=== PATIENT | male | born 1990 | race Caucasian/White ===

== ENCOUNTER 2017-10-08 10:53 | Emergency (ER) | payer MEDICAID, OTHER ==
[~2017-10-08] VITALS: Ht 185.4 cm; Wt 71.7 kg
[~2017-10-08 10:53] MED LIST: BENZ-16 PO; CLIN-79 PO; FLUT16SP2 NS; GUAI473S11 PO
[2017-10-08] MEDS ORDERED: GUAI120015 PO (11:28)
[2017-10-08] MEDS ORDERED: AFRIN NS (11:28)
[2017-10-08] MEDS ORDERED: IBUP-1986 PO (11:28)
[2017-10-08 11:39] VITALS: BP 134/90
== END 2017-10-08 11:37 | disposition home or self-care (01) ==
LOC: ER 10:53
DX: J06.9 Acute upper respiratory infection, unspecified (principal); J32.9 Chronic sinusitis, unspecified; F12.10 Cannabis abuse, uncomplicated; Z88.0 Allergy status to penicillin; Z79.899 Other long term (current) drug therapy; Z72.0 Tobacco use
CPT/HCPCS: 99283

== ENCOUNTER 2018-07-13 15:49 | Emergency (ER) | payer OTHER ==
[~2018-07-13] VITALS: Ht 185.4 cm; Wt 72.7 kg
[~2018-07-13 15:49] MED LIST changes: -CLIN-79 PO; +CLIN150C8 PO; +GUAI120015 PO; +IBUP-1986 PO
[2018-07-13] MEDS: acetaminophen 325mg tablet PO ONE (16:23)
[2018-07-13] MEDS: dexamethasone sod phosphate 10mg/ml inj PO STA (16:23)
[2018-07-13 17:16] VITALS: BP 123/74
== END 2018-07-13 17:18 | disposition home or self-care (01) ==
LOC: ER 15:49
DX: J02.9 Acute pharyngitis, unspecified (principal); J39.2 Other diseases of pharynx; J35.1 Hypertrophy of tonsils; F12.90 Cannabis use, unspecified, uncomplicated; Z88.0 Allergy status to penicillin; Z91.018 Allergy to other foods; Z79.899 Other long term (current) drug therapy
CPT/HCPCS: 87081; 87880; 99283; J1100

== ENCOUNTER 2018-07-18 07:29 | Emergency (ER) | payer SELFPAY ==
[~2018-07-18] VITALS: Ht 185.4 cm; Wt 71.1 kg
[2018-07-18 07:37] VITALS: BP 132/77
== END 2018-07-18 09:19 | disposition home or self-care (01) ==
LOC: ER 07:31
DX: J02.9 Acute pharyngitis, unspecified (principal); F17.200 Nicotine dependence, unspecified, uncomplicated; F12.90 Cannabis use, unspecified, uncomplicated; Z88.0 Allergy status to penicillin; Z79.2 Long term (current) use of antibiotics; Z79.899 Other long term (current) drug therapy
CPT/HCPCS: 87081; 87880; 99283

== ENCOUNTER 2018-09-02 09:57 | Emergency (ER) | payer OTHER ==
[~2018-09-02] VITALS: Ht 185.4 cm; Wt 72.7 kg
[2018-09-02] MEDS ORDERED: CYCL-1 PO (11:34)
[2018-09-02] MEDS ORDERED: ketorolac trometh inj. 60 MG/2 ML VIAL IM ONE (11:35)
[2018-09-02 12:13] VITALS: BP 127/73
== END 2018-09-02 12:16 | disposition home or self-care (01) ==
LOC: ER 09:57
DX: S16.1XXA Strain of muscle, fascia and tendon at neck level, initial encounter (principal); F12.90 Cannabis use, unspecified, uncomplicated; Z88.0 Allergy status to penicillin; X58.XXXA Exposure to other specified factors, initial encounter; Y93.89 Activity, other specified; Y92.89 Other specified places as the place of occurrence of the external cause; Y99.8 Other external cause status
CPT/HCPCS: 96372; 99283; J1885

== ENCOUNTER 2018-10-13 15:15 | Emergency (ER) | payer OTHER ==
[~2018-10-13] VITALS: Ht 185.4 cm; Wt 76.0 kg
[~2018-10-13 15:15] MED LIST changes: +CYCL-1 PO
[2018-10-13 15:20] VITALS: BP 127/72
[2018-10-13] MEDS ORDERED: ACET-2615 PO (15:44)
[2018-10-13] MEDS ORDERED: MELO-100 PO (15:44)
[2018-10-13] MEDS ORDERED: CYCL-1 PO (15:44)
[2018-10-13] MEDS ORDERED: acetaminophen 325mg tablet PO ONE (15:45)
[2018-10-13] MEDS ORDERED: ondansetron 4mg rapidly disintigrating tab PO ONE (15:45)
[2018-10-13] MEDS ORDERED: ketorolac trometh inj. 60 MG/2 ML VIAL IM ONE (15:45)
[2018-10-13] MEDS ORDERED: HYDROcodone/acetaminophen 5mg/325mg tablet PO ONE (15:45)
== END 2018-10-13 16:27 | disposition home or self-care (01) ==
LOC: ER 15:15
DX: S30.810A Abrasion of lower back and pelvis, initial encounter (principal); F12.90 Cannabis use, unspecified, uncomplicated; Z88.0 Allergy status to penicillin; Z79.899 Other long term (current) drug therapy; W18.49XA Other slipping, tripping and stumbling without falling, initial encounter; Y93.89 Activity, other specified; Y92.89 Other specified places as the place of occurrence of the external cause; Y99.9 Unspecified external cause status
CPT/HCPCS: 96372; 99284; J1885

== ENCOUNTER 2018-10-23 10:51 | Emergency (ER) | payer OTHER ==
[~2018-10-23] VITALS: Ht 182.9 cm; Wt 73.0 kg
[~2018-10-23 10:51] MED LIST changes: +ACET-2615 PO; +MELO-100 PO
[2018-10-23 11:17] VITALS: BP 122/73
[2018-10-23] MEDS ORDERED: CLIN-96 PO (12:30)
== END 2018-10-23 12:41 | disposition home or self-care (01) ==
LOC: ER 10:52
DX: K04.7 Periapical abscess without sinus (principal); K02.9 Dental caries, unspecified; F41.9 Anxiety disorder, unspecified; F17.200 Nicotine dependence, unspecified, uncomplicated; F12.10 Cannabis abuse, uncomplicated; Z88.0 Allergy status to penicillin; Z79.899 Other long term (current) drug therapy
CPT/HCPCS: 99283

== ENCOUNTER 2018-10-24 09:38 | Emergency (ER) | payer OTHER ==
[~2018-10-24] VITALS: Ht 185.4 cm; Wt 118.2 kg
[~2018-10-24 09:38] MED LIST changes: +CLIN-96 PO
[2018-10-24] MEDS ORDERED: LIDOcaine 1% w/epiNEPHrine 1:200,000 30ml vial IM ONE (10:20)
[2018-10-24 11:25] VITALS: BP 142/92
== END 2018-10-24 11:28 | disposition home or self-care (01) ==
LOC: ER 09:39
DX: K04.7 Periapical abscess without sinus (principal); F17.200 Nicotine dependence, unspecified, uncomplicated; F12.90 Cannabis use, unspecified, uncomplicated; Z88.0 Allergy status to penicillin
CPT/HCPCS: 41800; 99284

== ENCOUNTER 2020-12-01 14:17 | Emergency (ER) | payer MEDICAID ==
[~2020-12-01] VITALS: Ht 185.4 cm; Wt 75.0 kg
[~2020-12-01 14:17] MED LIST changes: -ACET-2615 PO; -CLIN-96 PO; +CLIN-97 PO
[2020-12-01 14:26] VITALS: BP 121/70
[2020-12-01] MEDS ORDERED: diphenhydrAMINE 2%/zinc acetate cream TP STA (14:58)
[2020-12-01] MEDS ORDERED: triamcinolone acetonide 40mg/ml inj IM ONE (15:00)
[2020-12-01] MEDS ORDERED: hydrocortisone 1% OINTMENT 30gm tube TP ONE (15:00)
[2020-12-01] MEDS ORDERED: PRED10TA PO (15:14)
[2020-12-01] MEDS ORDERED: HYDR28CR14 TOP (15:14)
== END 2020-12-01 15:38 | disposition home or self-care (01) ==
LOC: ER 14:18
DX: L23.7 Allergic contact dermatitis due to plants, except food (principal); F41.9 Anxiety disorder, unspecified; F12.90 Cannabis use, unspecified, uncomplicated; Z72.89 Other problems related to lifestyle; Z88.0 Allergy status to penicillin; Z79.2 Long term (current) use of antibiotics; Z79.899 Other long term (current) drug therapy
CPT/HCPCS: 99283; J3301

== ENCOUNTER 2021-01-13 08:33 | Emergency (ER) | payer MEDICAID ==
[~2021-01-13] VITALS: Ht 185.4 cm; Wt 68.2 kg
[2021-01-13 08:33] VITALS: BP 124/75
[~2021-01-13 08:33] MED LIST changes: +HYDR28CR14 TOP; +PRED10TA PO
[2021-01-13] MEDS ORDERED: DICL100G15 TOP (09:24)
[2021-01-13] MEDS ORDERED: NAPR-56 PO (09:24)
[2021-01-13] MEDS ORDERED: ketorolac trometh inj. 60 MG/2 ML VIAL IM ONE (09:25)
== END 2021-01-13 09:40 | disposition home or self-care (01) ==
LOC: ER 08:33
DX: M75.51 Bursitis of right shoulder (principal); M25.511 Pain in right shoulder; R53.1 Weakness; F41.9 Anxiety disorder, unspecified; F12.90 Cannabis use, unspecified, uncomplicated; Z72.89 Other problems related to lifestyle; Z88.0 Allergy status to penicillin; Z79.2 Long term (current) use of antibiotics; Z79.899 Other long term (current) drug therapy
CPT/HCPCS: 73030; 96372; 99283; J1885

== ENCOUNTER 2021-03-12 17:44 | Emergency (ER) | payer MEDICAID ==
[~2021-03-12] VITALS: Ht 185.4 cm; Wt 72.0 kg
[~2021-03-12 17:44] MED LIST changes: +DICL100G15 TOP
[2021-03-12 18:08] VITALS: BP 114/69
[2021-03-12] MEDS ORDERED: HYDROcodone/acetaminophen 5mg/325mg tablet PO ONE (20:30)
[2021-03-12] MEDS ORDERED: ondansetron 4mg rapidly disintigrating tab PO ONE (20:30)
[2021-03-12] MEDS ORDERED: ketorolac tromethamine 15mg/ml inj. IM ONE (20:30)
[2021-03-12] MEDS ORDERED: IBUP-1984 PO (20:38)
== END 2021-03-12 21:07 | disposition home or self-care (01) ==
LOC: ER 17:44
DX: M25.531 Pain in right wrist (principal); F41.9 Anxiety disorder, unspecified; F12.90 Cannabis use, unspecified, uncomplicated; Z72.89 Other problems related to lifestyle; Z88.0 Allergy status to penicillin; Z79.2 Long term (current) use of antibiotics; Z79.899 Other long term (current) drug therapy
CPT/HCPCS: 29125; 73100; 96372; 99283; J1885

== ENCOUNTER 2021-11-07 15:13 | Emergency (ER) | payer MEDICAID ==
[~2021-11-07] VITALS: Ht 185.4 cm; Wt 75.0 kg
[2021-11-07 16:09] VITALS: BP 128/93
== END 2021-11-07 17:59 | disposition home or self-care (01) ==
LOC: ER 15:14
DX: S63.617A Unspecified sprain of left little finger, initial encounter (principal); X50.9XXA Other and unspecified overexertion or strenuous movements or postures, initial encounter; Y93.89 Activity, other specified; Y92.89 Other specified places as the place of occurrence of the external cause; Y99.8 Other external cause status
CPT/HCPCS: 73140; 99283

== ENCOUNTER 2021-12-07 10:10 | Inpatient (IN) | payer MEDICAID ==
[~2021-12-07] VITALS: Ht 185.4 cm; Wt 67.2 kg
[2021-12-07 10:51] LABS: BASOPHILS % (AUTO) 0.2 % (0-1); EOSINOPHILS % (AUTO) 0.1 % (0-6); HEMATOCRIT 44.8 % (42.0-52.0); HEMOGLOBIN 14.9 g/dl (14.0-17.9); LYMPHOCYTES # (AUTO) 1.4 X10'3 (1.1-4.8); LYMPHOCYTES % (AUTO) 8.6 % (21-51); MEAN CORPUSCULAR HEMOGLOBIN 31.5 PG (27.0-31.0); MEAN CORPUSCULAR HGB CONC 33.2 g/dL (33.0-36.5); MEAN CORPUSCULAR VOLUME 94.8 FL (78-98); MEAN PLATELET VOLUME 6.4 FL (7.4-10.4); MONOCYTES # (AUTO) 0.8 X10'3 (0-0.9); MONOCYTES % (AUTO) 4.7 % (2-12); NEUTROPHILS # (AUTO) 14.5 X10'3 (1.8-7.7); NEUTROPHILS % (AUTO) 86.4 % (42-75); PLATELET COUNT 336 X10'3 (140-440); RED BLOOD COUNT 4.73 X10'6 (4.70-6.10); WHITE BLOOD COUNT 16.8 X10'3 (4.5-11.0)
[2021-12-07 11:28] LABS: ANION GAP 15 (8-16); BLOOD UREA NITROGEN 29 MG/DL (7-18); BUN/CREATININE RATIO 9.3 (5.4-32.0); CHLORIDE 98 MMOL/L (99-107); CREATININE 3.13 MG/DL (0.60-1.10); GLUCOSE 137 MG/DL (70-104); SODIUM 136 MMOL/L (135-145); eGFR 24 ML/MIN
[2021-12-07 11:29] LABS: ALBUMIN/GLOBULIN RATIO 1.1 (1.1-1.5); BILIRUBIN,TOTAL 0.4 MG/DL (0.1-1.0); CALCIUM 7.7 MG/DL (8.5-10.1); TOTAL PROTEIN 7.7 G/DL (6.4-8.2)
[2021-12-07 11:30] LABS: ALANINE AMINOTRANSFERASE 3401 U/L (12-78); ALKALINE PHOSPHATASE 84 IU/L (46-116); ASPARTATE AMINO TRANSFERASE 3860 U/L (10-37)
[2021-12-07 11:35] LABS: POTASSIUM 6.8 MMOL/L (3.5-5.1)
[2021-12-07] MEDS ORDERED: normal saline 1000ML IV soln IVB ONE (11:55)
--- NOTE | 2021-12-07 12:10 | NUR ---
Pt to CT
[2021-12-07] MEDS ORDERED: ondansetron/PF 4mg/2ml inj IV ONE (13:10)
[2021-12-07 13:15] LABS: ACETAMINOPHEN < 2.0 UG/ML (10-30)
[2021-12-07] MEDS ORDERED: albuterol 2.5 MG/3 ML nebule CONTNEB PRN (13:45)
[2021-12-07] MEDS ORDERED: cefTRIAXone 1g/NS 100ml IVPB 100 ML IV ONE (13:45)
[2021-12-07] MEDS ORDERED: insulin NPH/REG insulin (NovoLIN 70/30) 10ml vial SQ SCH (13:45)
[2021-12-07] MEDS ORDERED: sodium polystyrene sulfonate 15gm/60ml oral suspension PO ONE (13:45)
[2021-12-07] MEDS ORDERED: insulin regular, human 10 units/0.1 ml syringe IV ONE ×2 (13:50→20:10)
[2021-12-07] MEDS ORDERED: dextrose 50%-water 50ml dispensing syringe IV ONE ×2 (13:50→20:10)
[2021-12-07 13:54] LABS: URINE AMPHETAMINE SCREEN NEGATIVE (Neg); URINE BARBITUATE SCREEN NEGATIVE (Neg); URINE BENZODIAZEPINES SCREEN NEGATIVE (Neg); URINE CANNABINOID SCREEN POSITIVE (Neg); URINE COCAINE SCREEN POSITIVE (Neg); URINE METHADONE SCREEN NEGATIVE (Neg); URINE OPIATE SCREEN NEGATIVE (Neg); URINE PHENCYCLIDINE SCREEN NEGATIVE (Neg)
--- NOTE | 2021-12-07 15:15 | NUR ---
Pt to CT, then to MRI for scan after.
[2021-12-07 16:02] LABS: OSMOLALITY 297 MOSM/K (280-300)
[2021-12-07] MEDS ORDERED: WATER IV ONE ×3 (16:45→21:45)
[2021-12-07] MEDS ORDERED: DEXTROSE 5% IV ONE ×3 (16:45→21:45)
[2021-12-07] MEDS ORDERED: ACETYLCYSTEINE IV ONE ×3 (16:45→21:45)
[2021-12-07 17:01] LABS: CREATINE KINASE 5381 U/L (39-308)
[2021-12-07 17:11] LABS: POTASSIUM 5.8 MMOL/L (3.5-5.1)
[2021-12-07] MEDS ORDERED: normal saline 1000ml 1,000 ML IV SCH (17:25)
[2021-12-07] MEDS ORDERED: morphine 2 MG/ML inj. syringe IV PRN (18:35)
[2021-12-07] MEDS ORDERED: ipratropium/albuterol 3ml nebule NEB PRN (18:35)
[2021-12-07] MEDS ORDERED: magnesium hydroxide 30ml (MOM) UD suspension PO PRN (18:35)
[2021-12-07] MEDS: normal saline 1000ml 1,000 ML IV SCH ×2 (18:50→23:35)
[2021-12-07] MEDS: aspirin 81mg, enteric-coated 1 TAB TABLET.DR PO SCH (18:55)
[2021-12-07 19:00] VITALS: BP 137/98
[2021-12-07] MEDS: ondansetron/PF 4mg/2ml inj IV PRN (19:02)
[2021-12-07] MEDS ORDERED: NO HOME MEDS (19:04)
[2021-12-07] MEDS: pantoprazole 40mg Tablet.DR PO SCH (19:55)
[2021-12-07] MEDS: doxycycline inj 100 MG in normal saline 100ml IV soln 100 ML IV SCH (19:55)
[2021-12-07 19:59] LABS: ALBUMIN 3.3 G/DL (3.4-5.0); ANION GAP 11 (8-16); BLOOD UREA NITROGEN 36 MG/DL (7-18); BUN/CREATININE RATIO 13.6 (5.4-32.0); CALCIUM 6.6 MG/DL (8.5-10.1); CHLORIDE 101 MMOL/L (99-107); CREATININE 2.65 MG/DL (0.60-1.10); GLUCOSE 160 MG/DL (70-104); SODIUM 136 MMOL/L (135-145); TOTAL CARBON DIOXIDE 24.2 MMOL/L (24-32); eGFR 28 ML/MIN
[2021-12-07 19:59] LABS: ABG BASE EXCESS -4.9 mmol/L (-2.0-2.0); ABG HCO3 22.7 mmol/L (22.0-26.0); ABG PCO2 (T) 49.9 mmHg (35.0-48.0); ABG PO2 (T) 88.5 mmHg (75.0-100.0); ALLEN'S TEST POSITIVE; FCOHb 0.4 % (0.0-3.9); FLOW 2 L/min; FMetHb 0.2 % (0.0-1.5); FO2Hb 95.4 % (94-97); PATIENT TEMPERATURE 36.1; TOTAL HEMOGLOBIN 14.3 G/dl (14.0-18.0)
[2021-12-07 20:00] VITALS: BP 136/74
[2021-12-07 20:00] LABS: POTASSIUM 6.2 MMOL/L (3.5-5.1)
[2021-12-07] MEDS ORDERED: SODIUM ZIRCONIUM CYCLOSILICATE 10 GM POWD.PACK PO ONE (20:25)
[2021-12-07 21:00] VITALS: BP 150/92
[2021-12-07 22:00] VITALS: BP 124/86
[2021-12-07 23:00] VITALS: BP 131/82
[2021-12-08] VITALS (24 sets, daily range): BP systolic 122–156; BP diastolic 80–104
[2021-12-08 00:42] LABS: ANION GAP 12 (8-16); BLOOD UREA NITROGEN 39 MG/DL (7-18); BUN/CREATININE RATIO 14.7 (5.4-32.0); CALCIUM 6.7 MG/DL (8.5-10.1); CHLORIDE 101 MMOL/L (99-107); CREATININE 2.66 MG/DL (0.60-1.10); GLUCOSE 94 MG/DL (70-104); POTASSIUM 5.5 MMOL/L (3.5-5.1); SODIUM 135 MMOL/L (135-145); TOTAL CARBON DIOXIDE 22.1 MMOL/L (24-32); eGFR 28 ML/MIN
[2021-12-08] MEDS: normal saline 1000ml 1,000 ML IV SCH ×2 (01:19→07:02)
[2021-12-08] MEDS: ondansetron/PF 4mg/2ml inj IV PRN ×3 (02:52→16:58)
[2021-12-08 03:44] LABS: ALBUMIN 2.9 G/DL (3.4-5.0); ALBUMIN/GLOBULIN RATIO 1.1 (1.1-1.5); ALKALINE PHOSPHATASE 54 IU/L (46-116); ANION GAP 10 (8-16); BILIRUBIN,TOTAL 0.2 MG/DL (0.1-1.0); BLOOD UREA NITROGEN 41 MG/DL (7-18); CALCIUM 6.6 MG/DL (8.5-10.1); CHLORIDE 101 MMOL/L (99-107); CREATININE 2.93 MG/DL (0.60-1.10); GLUCOSE 104 MG/DL (70-104); MAGNESIUM 1.5 MG/DL (1.5-2.4); PHOSPHORUS 2.9 MG/DL (2.3-4.5); SODIUM 135 MMOL/L (135-145); TOTAL CARBON DIOXIDE 23.6 MMOL/L (24-32); TOTAL PROTEIN 5.6 G/DL (6.4-8.2); eGFR 25 ML/MIN
[2021-12-08 03:52] LABS: POTASSIUM 5.1 MMOL/L (3.5-5.1)
[2021-12-08 04:01] LABS: ALANINE AMINOTRANSFERASE 2636 U/L (12-78); ASPARTATE AMINO TRANSFERASE 2429 U/L (10-37)
[2021-12-08] MEDS ORDERED: ringers solution, lacted 1,000 ML IV ONE (04:20)
[2021-12-08] MEDS: metoclopramide 5 mg/ml inj IV PRN ×3 (04:47→18:52)
[2021-12-08 05:34] LABS: TOTAL PROTEIN,URINE RANDOM 52.1 MG/DL
[2021-12-08 05:35] LABS: CLARITY,URINE SLIGHTLY CLOUDY (Clear); COLOR,URINE YELLOW (Yellow); GLUCOSE, URINE NEGATIVE (Neg); KETONES,URINE 15 mg/dl (Neg); LEUKOCYTE ESTERASE ,URINE NEGATIVE (Neg); NITRITES, URINE NEGATIVE (Neg); OCCULT BLOOD,URINE LARGE (Neg); PH,URINE 5.5 (4.8-8.0); PROTEIN,URINE TRACE mg/dl (Neg); UROBILINOGEN,URINE 0.2 E.U/dL (0.2-1.0)
[2021-12-08 05:38] LABS: UA COLLECTION TYPE VOIDED
[2021-12-08 05:50] LABS: COARSE GRANULAR CAST 0-3 /LPF (NEGATIVE)
[2021-12-08 05:52] LABS: AMORPHOUS URATES 1+; WBC,URINE 0-4 /HPF (0-4)
[2021-12-08 05:53] LABS: BACTERIA,URINE NONE SEEN /HPF (Neg); MUCUS STRANDS NONE SEEN /LPF (Neg); SQUAMOUS EPITHELIAL CELL,UR FEW /LPF (FEW)
[2021-12-08 05:56] LABS: BASOPHILS % (AUTO) 0.1 % (0-1); EOSINOPHILS % (AUTO) 0 % (0-6); HEMATOCRIT 38.2 % (42.0-52.0); HEMOGLOBIN 12.8 g/dl (14.0-17.9); LYMPHOCYTES # (AUTO) 1.6 X10'3 (1.1-4.8); MEAN CORPUSCULAR HEMOGLOBIN 31.3 PG (27.0-31.0); MEAN CORPUSCULAR HGB CONC 33.5 g/dL (33.0-36.5); MEAN CORPUSCULAR VOLUME 93.4 FL (78-98); MONOCYTES % (AUTO) 5.1 % (2-12); NEUTROPHILS # (AUTO) 17.5 X10'3 (1.8-7.7); NEUTROPHILS % (AUTO) 86.8 % (42-75); PLATELET COUNT 230 X10'3 (140-440); RED BLOOD COUNT 4.09 X10'6 (4.70-6.10); RED CELL DISTRIBUTION WIDTH 12.8 % (11.5-14.5); WHITE BLOOD COUNT 20.2 X10'3 (4.5-11.0)
--- NOTE | 2021-12-08 06:00 | NUR ---
Patient in room ICU 2045. I have received report from Salty DAVID and had the opportunity to ask questions and assume patient care.
[2021-12-08 06:18] LABS: UA EOSINOPHILS NO EOS /HPF
[2021-12-08] MEDS: pantoprazole 40mg Tablet.DR PO SCH (07:31)
[2021-12-08] MEDS: aspirin 81mg, enteric-coated 1 TAB TABLET.DR PO SCH (07:31)
[2021-12-08] MEDS ORDERED: cefTRIAXone 1g/NS 100ml IVPB 100 ML IV SCH (08:00)
[2021-12-08] MEDS: doxycycline inj 100 MG in normal saline 100ml IV soln 100 ML IV SCH (08:23)
[2021-12-08 10:10] LABS: ABG BASE EXCESS -5.8 mmol/L (-2.0-2.0); ABG HCO3 18.9 mmol/L (22.0-26.0); ABG OXYGEN SATURATION 91.5 % (94-97); ABG PCO2 (T) 34.4 mmHg (35.0-48.0); ABG PO2 (T) 64.7 mmHg (75.0-100.0); ALLEN'S TEST POSITIVE; FCOHb 0.3 % (0.0-3.9); FLOW 2 L/min; FMetHb 0.1 % (0.0-1.5); FO2Hb 91.1 % (94-97); TOTAL HEMOGLOBIN 13.2 G/dl (14.0-18.0)
[2021-12-08] MEDS ORDERED: cefTRIAXone 1g/NS 100ml IVPB 100 ML IV ONE (10:35)
--- NOTE | 2021-12-08 11:43 | NUR ---
Noted pt BMI 16.4 via bed scaled wt this admit. Pt appears thin though no overt visible signs of muscle/fat wasting evident at this time, reports no wt loss hx, has normal strength, and no edema/wounds present per EMR. Refusing first two regular diet meals related to N/V per RN/EMR. Possibly maintains stable low wt status at baseline. Will monitor for further malnutrition criteria and nutrition intervention needs this admit. Addendum: 12/08/21 at [address] Amended: Links added.
[2021-12-08] MEDS: azithromycin/NS 500mg/250ml 250 ML IV SCH (12:00)
[2021-12-08] MEDS: ringers solution, lacted 1,000 ML IV SCH ×3 (12:00→18:52)
[2021-12-08 12:55] LABS: HIV ANTIBODY 1&2 RAPID NON-REACTIVE (Neg)
[2021-12-08 13:37] LABS: HEMOGLOBIN A1C 5.5 % (4.5-6.2)
[2021-12-08 17:09] LABS: BASOPHILS % (AUTO) 0 % (0-1); EOSINOPHILS % (AUTO) 0.1 % (0-6); HEMATOCRIT 39.7 % (42.0-52.0); HEMOGLOBIN 13.2 g/dl (14.0-17.9); LYMPHOCYTES # (AUTO) 1.2 X10'3 (1.1-4.8); MEAN CORPUSCULAR HEMOGLOBIN 30.4 PG (27.0-31.0); MEAN CORPUSCULAR HGB CONC 33.2 g/dL (33.0-36.5); MEAN CORPUSCULAR VOLUME 91.5 FL (78-98); MEAN PLATELET VOLUME 7.1 FL (7.4-10.4); MONOCYTES % (AUTO) 5.4 % (2-12); NEUTROPHILS # (AUTO) 16.9 X10'3 (1.8-7.7); NEUTROPHILS % (AUTO) 88.5 % (42-75); PLATELET COUNT 202 X10'3 (140-440); RED BLOOD COUNT 4.33 X10'6 (4.70-6.10); RED CELL DISTRIBUTION WIDTH 12.9 % (11.5-14.5); WHITE BLOOD COUNT 19.1 X10'3 (4.5-11.0)
[2021-12-08 17:34] LABS: ALBUMIN 2.8 G/DL (3.4-5.0); ALBUMIN/GLOBULIN RATIO 1.1 (1.1-1.5); ALKALINE PHOSPHATASE 55 IU/L (46-116); ANION GAP 10 (8-16); BILIRUBIN,TOTAL 0.3 MG/DL (0.1-1.0); BLOOD UREA NITROGEN 47 MG/DL (7-18); BUN/CREATININE RATIO 14.5 (5.4-32.0); CALCIUM 7.2 MG/DL (8.5-10.1); CHLORIDE 102 MMOL/L (99-107); CREATININE 3.24 MG/DL (0.60-1.10); GLUCOSE 106 MG/DL (70-104); MAGNESIUM 1.7 MG/DL (1.5-2.4); PHOSPHORUS 2.8 MG/DL (2.3-4.5); POTASSIUM 4.9 MMOL/L (3.5-5.1); SODIUM 136 MMOL/L (135-145); TOTAL CARBON DIOXIDE 24.2 MMOL/L (24-32); TOTAL PROTEIN 5.3 G/DL (6.4-8.2); eGFR 23 ML/MIN
[2021-12-08 17:36] LABS: ALANINE AMINOTRANSFERASE 2680 U/L (12-78); ASPARTATE AMINO TRANSFERASE 1570 U/L (10-37)
--- NOTE | 2021-12-08 18:07 | NUR ---
Problems reprioritized. Patient report given, questions answered & plan of care reviewed with Salty DAVID.
[2021-12-08] MEDS ORDERED: diphenhydrAMINE 50 mg/ml inj IV PRN (18:40)
[2021-12-08 19:09] LABS: LIPASE 66 U/L (73-393)
[2021-12-09] VITALS (19 sets, daily range): BP systolic 112–146; BP diastolic 79–98
[2021-12-09] MEDS: ondansetron/PF 4mg/2ml inj IV PRN ×3 (00:21→07:11)
[2021-12-09] MEDS: ringers solution, lacted 1,000 ML IV SCH ×2 (02:29→12:41)
[2021-12-09] MEDS: metoclopramide 5 mg/ml inj IV PRN ×2 (02:52→08:56)
[2021-12-09 05:18] LABS: BASOPHILS % (AUTO) 0.1 % (0-1); EOSINOPHILS % (AUTO) 0.1 % (0-6); HEMATOCRIT 36.5 % (42.0-52.0); HEMOGLOBIN 12.4 g/dl (14.0-17.9); LYMPHOCYTES # (AUTO) 1.2 X10'3 (1.1-4.8); LYMPHOCYTES % (AUTO) 7.2 % (21-51); MEAN CORPUSCULAR HEMOGLOBIN 31.1 PG (27.0-31.0); MEAN CORPUSCULAR HGB CONC 33.9 g/dL (33.0-36.5); MEAN CORPUSCULAR VOLUME 91.7 FL (78-98); MEAN PLATELET VOLUME 7.4 FL (7.4-10.4); MONOCYTES # (AUTO) 0.9 X10'3 (0-0.9); MONOCYTES % (AUTO) 5.2 % (2-12); NEUTROPHILS # (AUTO) 14.6 X10'3 (1.8-7.7); NEUTROPHILS % (AUTO) 87.4 % (42-75); PLATELET COUNT 194 X10'3 (140-440); RED BLOOD COUNT 3.98 X10'6 (4.70-6.10); RED CELL DISTRIBUTION WIDTH 13.1 % (11.5-14.5); WHITE BLOOD COUNT 16.7 X10'3 (4.5-11.0)
--- NOTE | 2021-12-09 06:35 | NUR ---
Patient in room ICU 2045. I have received report from Leandro DAVID and had the opportunity to ask questions and assume patient care.
[2021-12-09] MEDS: CefTRIAXone 2gm/NS 100ml IVPB 100 ML IV SCH (07:24)
[2021-12-09] MEDS: pantoprazole 40mg Tablet.DR PO SCH (07:30)
[2021-12-09 07:32] LABS: ALANINE AMINOTRANSFERASE 2278 U/L (12-78); ALBUMIN 2.7 G/DL (3.4-5.0); ALBUMIN/GLOBULIN RATIO 1.2 (1.1-1.5); ALKALINE PHOSPHATASE 59 IU/L (46-116); ANION GAP 11 (8-16); ASPARTATE AMINO TRANSFERASE 997 U/L (10-37); BILIRUBIN,TOTAL 0.3 MG/DL (0.1-1.0); BLOOD UREA NITROGEN 49 MG/DL (7-18); BUN/CREATININE RATIO 14.2 (5.4-32.0); CALCIUM 7.5 MG/DL (8.5-10.1); CHLORIDE 103 MMOL/L (99-107); CREATINE KINASE 2778 U/L (39-308); CREATININE 3.46 MG/DL (0.60-1.10); GLUCOSE 86 MG/DL (70-104); MAGNESIUM 1.6 MG/DL (1.5-2.4); PHOSPHORUS 3.6 MG/DL (2.3-4.5); POTASSIUM 4.3 MMOL/L (3.5-5.1); SODIUM 137 MMOL/L (135-145); TOTAL CARBON DIOXIDE 23.3 MMOL/L (24-32); eGFR 21 ML/MIN
[2021-12-09] MEDS: aspirin 81mg, enteric-coated 1 TAB TABLET.DR PO SCH (07:33)
--- NOTE | 2021-12-09 07:46 | NUR ---
Dr. Funez in to see pt.
[2021-12-09] MEDS: azithromycin/NS 500mg/250ml 250 ML IV SCH (07:50)
[2021-12-09] MEDS ORDERED: ondansetron/PF 4mg/2ml inj IV PRN (08:00)
[2021-12-09] MEDS ORDERED: ondansetron/PF 4mg/2ml inj IV ONE (08:20)
[2021-12-09] MEDS ORDERED: ondansetron/PF 4mg/2ml inj IM ONE (08:20)
--- NOTE | 2021-12-09 08:39 | NUR ---
Dr. Mccall in to see pt.
--- NOTE | 2021-12-09 09:12 | NUR ---
Dr. Mccall aware of intractable N/V. Additional Zofran dose ordered and given. Reglan given. Dr. Funez increased Zofran dose from 4mg to 8mg. Order rec'd to transfer pt. to floor. vp software engineering aware.
--- NOTE | 2021-12-09 09:46 | NUR ---
Poison Control called for lab update. Stated they will close the case since his liver enzymes are trending down.
--- NOTE | 2021-12-09 13:27 | NUR ---
Vascular study of portal vein just completed. Awaiting room on the floor.
--- NOTE | 2021-12-09 15:39 | NUR ---
RECD REPORT FROM GEORGE DAVID
--- NOTE | 2021-12-09 15:41 | NUR ---
Report given to Patricia DAVID prior to transferring pt. up to room 4009 in stable condition with all belongings.
--- NOTE | 2021-12-09 17:15 | NUR ---
AGREE WITH ASSESSMENT DONE BY FILLETER EXCEPT FOR CHANGES MADE Addendum: 12/09/21 at 1715 by Cindy Ferrara RN Amended: Links added.
--- NOTE | 2021-12-09 18:14 | NUR ---
Problems reprioritized. Patient report given, questions answered & plan of care reviewed with CORNELIA DAVID.
[2021-12-10 02:00] VITALS: BP 131/84
[2021-12-10] MEDS: ringers solution, lacted 1,000 ML IV SCH ×4 (05:54→23:22)
--- NOTE | 2021-12-10 06:29 | NUR ---
Patient in room ORTHO 4009. I have received report from JOANN Garcia and had the opportunity to ask questions and assume patient care.
[2021-12-10 06:42] LABS: BASOPHILS % (AUTO) 0.2 % (0-1); EOSINOPHILS % (AUTO) 0.1 % (0-6); HEMOGLOBIN 12.1 g/dl (14.0-17.9); LYMPHOCYTES # (AUTO) 1.4 X10'3 (1.1-4.8); MEAN CORPUSCULAR HEMOGLOBIN 30.5 PG (27.0-31.0); MEAN CORPUSCULAR HGB CONC 33.6 g/dL (33.0-36.5); MEAN CORPUSCULAR VOLUME 90.8 FL (78-98); MEAN PLATELET VOLUME 7.6 FL (7.4-10.4); MONOCYTES # (AUTO) 0.8 X10'3 (0-0.9); MONOCYTES % (AUTO) 5.3 % (2-12); NEUTROPHILS # (AUTO) 13.1 X10'3 (1.8-7.7); NEUTROPHILS % (AUTO) 85.4 % (42-75); PLATELET COUNT 187 X10'3 (140-440); RED BLOOD COUNT 3.97 X10'6 (4.70-6.10); RED CELL DISTRIBUTION WIDTH 13.1 % (11.5-14.5); WHITE BLOOD COUNT 15.4 X10'3 (4.5-11.0)
[2021-12-10 06:44] VITALS: BP 125/83
--- NOTE | 2021-12-10 06:51 | NUR ---
Problems reprioritized. Patient report given, questions answered & plan of care reviewed with Noemi DAVID.
[2021-12-10] MEDS: pantoprazole 40mg Tablet.DR PO SCH (07:09)
[2021-12-10] MEDS: aspirin 81mg, enteric-coated 1 TAB TABLET.DR PO SCH (07:10)
[2021-12-10] MEDS: CefTRIAXone 2gm/NS 100ml IVPB 100 ML IV SCH (07:10)
[2021-12-10 07:31] LABS: ALBUMIN 2.7 G/DL (3.4-5.0); ALBUMIN/GLOBULIN RATIO 1.1 (1.1-1.5); ALKALINE PHOSPHATASE 60 IU/L (46-116); ANION GAP 13 (8-16); ASPARTATE AMINO TRANSFERASE 473 U/L (10-37); BILIRUBIN,TOTAL 0.6 MG/DL (0.1-1.0); BLOOD UREA NITROGEN 46 MG/DL (7-18); BUN/CREATININE RATIO 15.5 (5.4-32.0); CALCIUM 7.7 MG/DL (8.5-10.1); CHLORIDE 105 MMOL/L (99-107); CREATININE 2.97 MG/DL (0.60-1.10); GLUCOSE 76 MG/DL (70-104); MAGNESIUM 1.9 MG/DL (1.5-2.4); PHOSPHORUS 2.8 MG/DL (2.3-4.5); POTASSIUM 3.7 MMOL/L (3.5-5.1); SODIUM 140 MMOL/L (135-145); TOTAL CARBON DIOXIDE 22.2 MMOL/L (24-32); TOTAL PROTEIN 5.1 G/DL (6.4-8.2); eGFR 25 ML/MIN
[2021-12-10 07:33] LABS: ALANINE AMINOTRANSFERASE 1639 U/L (12-78)
[2021-12-10] MEDS: azithromycin/NS 500mg/250ml 250 ML IV SCH (08:28)
[2021-12-10 10:42] LABS: COMPLEMENT C3, SERUM 39 mg/dL (82-167); COMPLEMENT C4, SERUM <2 mg/dL (12-38); HBSAG SCREEN Negative (Negative); HEP A AB, IGM Negative (Negative); HEPATITIS C ANTIBODY <0.1 s/co ratio (0.0-0.9)
[2021-12-10 11:16] VITALS: BP 122/80
[2021-12-10 14:46] VITALS: BP 135/89
--- NOTE | 2021-12-10 18:26 | NUR ---
Problems reprioritized. Patient report given, questions answered & plan of care reviewed with JOANN Garcia.
[2021-12-10 19:00] VITALS: BP 153/89
[2021-12-10 19:04] LABS: ANTI-DSDNA ANTIBODIES <1 IU/mL (0-9); ANTINUCLEAR ANTIBODIES Negative (Negative)
[2021-12-10 22:00] VITALS: BP 133/83
[2021-12-10] MEDS: metoclopramide 5 mg/ml inj IV PRN (23:47)
[2021-12-11 06:00] VITALS: BP 132/82
--- NOTE | 2021-12-11 06:23 | NUR ---
Problems reprioritized. Patient report given, questions answered & plan of care reviewed with Noemi DAVID.
--- NOTE | 2021-12-11 06:26 | NUR ---
Patient in room ORTHO 4009. I have received report from JOANN Garcia and had the opportunity to ask questions and assume patient care.
[2021-12-11 06:48] LABS: BASOPHILS % (AUTO) 0.3 % (0-1); EOSINOPHILS % (AUTO) 0.3 % (0-6); HEMATOCRIT 35.1 % (42.0-52.0); LYMPHOCYTES # (AUTO) 1.4 X10'3 (1.1-4.8); MEAN CORPUSCULAR HEMOGLOBIN 30.8 PG (27.0-31.0); MEAN CORPUSCULAR VOLUME 90.6 FL (78-98); MEAN PLATELET VOLUME 7.4 FL (7.4-10.4); MONOCYTES % (AUTO) 6.9 % (2-12); NEUTROPHILS # (AUTO) 11.6 X10'3 (1.8-7.7); NEUTROPHILS % (AUTO) 82.5 % (42-75); PLATELET COUNT 183 X10'3 (140-440); RED BLOOD COUNT 3.88 X10'6 (4.70-6.10); RED CELL DISTRIBUTION WIDTH 12.8 % (11.5-14.5); WHITE BLOOD COUNT 14.1 X10'3 (4.5-11.0)
[2021-12-11 07:04] LABS: ANION GAP 7 (8-16); BLOOD UREA NITROGEN 31 MG/DL (7-18); CHLORIDE 106 MMOL/L (99-107); CREATININE 2.02 MG/DL (0.60-1.10); GLUCOSE 90 MG/DL (70-104); POTASSIUM 3.2 MMOL/L (3.5-5.1); SODIUM 139 MMOL/L (135-145); TOTAL CARBON DIOXIDE 25.9 MMOL/L (24-32)
[2021-12-11] MEDS: pantoprazole 40mg Tablet.DR PO SCH (07:04)
[2021-12-11] MEDS: aspirin 81mg, enteric-coated 1 TAB TABLET.DR PO SCH (07:04)
[2021-12-11 07:05] LABS: ALANINE AMINOTRANSFERASE 1059 U/L (12-78); ALBUMIN 2.4 G/DL (3.4-5.0); ALBUMIN/GLOBULIN RATIO 0.9 (1.1-1.5); ALKALINE PHOSPHATASE 57 IU/L (46-116); ASPARTATE AMINO TRANSFERASE 187 U/L (10-37); BILIRUBIN,TOTAL 0.7 MG/DL (0.1-1.0); BUN/CREATININE RATIO 15.3 (5.4-32.0); CALCIUM 7.6 MG/DL (8.5-10.1); CREATINE KINASE 464 U/L (39-308); MAGNESIUM 1.8 MG/DL (1.5-2.4); PHOSPHORUS 2.7 MG/DL (2.3-4.5); eGFR 39 ML/MIN
[2021-12-11] MEDS: CefTRIAXone 2gm/NS 100ml IVPB 100 ML IV SCH (07:05)
[2021-12-11] MEDS: ringers solution, lacted 1,000 ML IV SCH (07:06)
--- NOTE | 2021-12-11 07:28 | NUR ---
PAGER ID: [phone] MESSAGE: [id number]- Arabella Riddle 3.2. Ok to order replacement per protocol? Bun 31, Mussel Opener 2.02- Noemi 8348
[2021-12-11] MEDS ORDERED: magnesium 4gm in 100ml NS 100 ML IV PRN (08:20)
[2021-12-11] MEDS ORDERED: magnesium Cl slow-release 64mg tablet PO PRN (08:20)
[2021-12-11] MEDS ORDERED: magnesium 2GM in 50ml NS 50 ML IV PRN (08:20)
[2021-12-11] MEDS ORDERED: potassium CL 10mEq/100ml bag 100 ML IV PRN (08:20)
[2021-12-11] MEDS ORDERED: potassium Cl 20 mEq SR tablet PO PRN (08:20)
--- NOTE | 2021-12-11 08:33 | NUR ---
Initial: Pt admitted w/ GURPREET/ALI, PNA, transaminitis and mild rhabdomyolysis per EMR. Currently on Regular diet initially w/ 0% intake for 2 days r/t intractable nausea and vomiting per documentation, though now up to 100% of last 2 meals. If pt continues w/ PO trends then no nutrition intervention will be needed. LBM 12/06 receiving PRN Reglan. Will continue to monitor. Recs: 1. Continue Regular diet as tolerated 2. Routine bowel care if MD agreeable 3. Weekly wts Addendum: 12/11/21 at [address] Amended: Links added.
[2021-12-11 09:26] LABS: MAGNESIUM 1.7 MG/DL (1.5-2.4); POTASSIUM 3.2 MMOL/L (3.5-5.1)
[2021-12-11 10:00] VITALS: BP 137/88
[2021-12-11] MEDS: azithromycin/NS 500mg/250ml 250 ML IV SCH (10:51)
[2021-12-11] MEDS: potassium Cl 20 mEq SR tablet PO PRN ×3 (10:51→17:58)
[2021-12-11] MEDS ORDERED: AZIT500T9 PO (11:25)
[2021-12-11] MEDS ORDERED: CEFD300C3 PO (11:25)
--- NOTE | 2021-12-11 12:24 | NUR ---
Dr Droan wanting patient to have K replacement prior to DC.
[2021-12-11 14:00] VITALS: BP 139/88
--- NOTE | 2021-12-11 17:18 | NUR ---
Patient alert and oriented in no apparent acute distress. No complaints at this time. Discussed with patient discharge teaching and new prescriptions. Patient verbalizes understanding of teaching. Given patient opportunity to ask and have questions answered, patient stated has no questions. Patient awaiting for last dose of KDUR and for transport home.
--- NOTE | 2021-12-11 17:58 | NUR ---
Patient dc'd with all personal belongings. Ambulated independently out escorted with x1 staff.
[2021-12-11] MEDS ORDERED: K and/or MAG REPLACEMENT MC SCH (20:00)
== END 2021-12-11 18:00 | disposition home or self-care (01) | DRG 133 ==
LOC: ER 10:11 → ED HOLD 18:03 → UNDOADMIN 18:03 → ICU 2S 18:33 → ED HOLD 18:33 → ICU 2S 18:47 → ED HOLD 18:47 → ORTHO 4S 12-09 15:30
PROVIDERS: ADMIT Internal Medicine; ATTEND Internal Medicine
DX: J96.01 Acute respiratory failure with hypoxia (principal); K72.00 Acute and subacute hepatic failure without coma; K76.7 Hepatorenal syndrome; J18.9 Pneumonia, unspecified organism; E87.2 Acidosis; M62.82 Rhabdomyolysis; I21.A1 Myocardial infarction type 2; R34 Anuria and oliguria; J96.02 Acute respiratory failure with hypercapnia; N17.9 Acute kidney failure, unspecified; H61.21 Impacted cerumen, right ear; H53.2 Diplopia; Z20.822 Contact with and (suspected) exposure to COVID-19; E87.5 Hyperkalemia; F12.90 Cannabis use, unspecified, uncomplicated; F17.200 Nicotine dependence, unspecified, uncomplicated; J45.909 Unspecified asthma, uncomplicated; N18.9 Chronic kidney disease, unspecified; F41.9 Anxiety disorder, unspecified; M19.90 Unspecified osteoarthritis, unspecified site; Z88.0 Allergy status to penicillin; Z91.018 Allergy to other foods; Z79.899 Other long term (current) drug therapy; Z71.6 Tobacco abuse counseling
CPT/HCPCS: 36415; 36600; 70450; 70544; 70547; 70551; 71045; 71250; 76700; 76770; 80048; 80053; 80074; 80305; 80329; 81001; 82140; 82550; 82570; 82803; 82948; 83036; 83605; 83690; 83735; 83880; 83930; 84100; 84132; 84145; 84156; 84300; 84439; 84443; 84484; 85018; 85025; 85610; 86038; 86160; 86162; 86256; 86703; 86738; 87040; 87081; 87088; 87207; 87502; 87503; 87635; 93005; 93306; 93975; 94760; 96365; 96366; 96368; 96375; 99291; C9803; G0378; J0132; J0456; J0696; J1200; J1815; J2405; J2765; J3490; J7030; J7060; J7070; J7120

== ENCOUNTER 2022-03-28 13:49 | Emergency (ER) | payer MEDICAID ==
[~2022-03-28] VITALS: Ht 185.4 cm; Wt 69.6 kg
[~2022-03-28 13:49] MED LIST changes: +AZIT500T9 PO; -BENZ-16 PO; -CLIN-97 PO; -CLIN150C8 PO; -CYCL-1 PO; -DICL100G15 TOP; -FLUT16SP2 NS; -GUAI120015 PO; -GUAI473S11 PO; -HYDR28CR14 TOP; -IBUP-1986 PO; -MELO-100 PO; -PRED10TA PO
[2022-03-28] MEDS ORDERED: ringers solution, lacted 1,000 ML IV ONE (14:35)
[2022-03-28 14:49] LABS: BASOPHILS % (AUTO) 0.3 % (0-1); EOSINOPHILS # (AUTO) 0.1 X10'3 (0-0.9); EOSINOPHILS % (AUTO) 1.4 % (0-6); HEMATOCRIT 40.5 % (42.0-52.0); HEMOGLOBIN 13.9 g/dl (14.0-17.9); LYMPHOCYTES # (AUTO) 0.2 X10'3 (1.1-4.8); LYMPHOCYTES % (AUTO) 3.1 % (21-51); MEAN CORPUSCULAR HGB CONC 34.3 g/dL (33.0-36.5); MEAN CORPUSCULAR VOLUME 90.5 FL (78-98); MEAN PLATELET VOLUME 6.6 FL (7.4-10.4); MONOCYTES # (AUTO) 0.6 X10'3 (0-0.9); MONOCYTES % (AUTO) 8.1 % (2-12); NEUTROPHILS # (AUTO) 6.1 X10'3 (1.8-7.7); NEUTROPHILS % (AUTO) 87.1 % (42-75); PLATELET COUNT 266 X10'3 (140-440); RED BLOOD COUNT 4.48 X10'6 (4.70-6.10); RED CELL DISTRIBUTION WIDTH 13.1 % (11.5-14.5); WHITE BLOOD COUNT 7.1 X10'3 (4.5-11.0)
[2022-03-28 15:03] LABS: ALANINE AMINOTRANSFERASE 21 U/L (12-78); ALBUMIN/GLOBULIN RATIO 1.1 (1.1-1.5); ALKALINE PHOSPHATASE 71 IU/L (46-116); ANION GAP 11 (8-16); ASPARTATE AMINO TRANSFERASE 19 U/L (10-37); BILIRUBIN,TOTAL 0.3 MG/DL (0.1-1.0); BLOOD UREA NITROGEN 7 MG/DL (7-18); BUN/CREATININE RATIO 6.8 (5.4-32.0); CALCIUM 8.8 MG/DL (8.5-10.1); CHLORIDE 99 MMOL/L (99-107); CREATININE 1.03 MG/DL (0.60-1.10); GLUCOSE 95 MG/DL (70-104); POTASSIUM 3.7 MMOL/L (3.5-5.1); SODIUM 136 MMOL/L (135-145); TOTAL CARBON DIOXIDE 26.4 MMOL/L (24-32); TOTAL PROTEIN 7.7 G/DL (6.4-8.2); eGFR 85 ML/MIN
[2022-03-28 15:04] LABS: CREATINE KINASE 91 U/L (39-308); MAGNESIUM 1.4 MG/DL (1.5-2.4)
[2022-03-28] MEDS ORDERED: magnesium 2GM in 50ml NS 50 ML IV ONE (15:50)
[2022-03-28] MEDS ORDERED: acetaminophen 325mg tablet PO ONE (16:05)
[2022-03-28 16:42] VITALS: BP 121/64
[2022-03-28 16:52] LABS: CLARITY,URINE CLEAR (Clear); COLOR,URINE YELLOW (Yellow); GLUCOSE, URINE NEGATIVE (Neg); KETONES,URINE 15 mg/dl (Neg); LEUKOCYTE ESTERASE ,URINE NEGATIVE (Neg); NITRITES, URINE NEGATIVE (Neg); OCCULT BLOOD,URINE NEGATIVE (Neg); PH,URINE 8.5 (4.8-8.0); PROTEIN,URINE NEGATIVE (Neg); UROBILINOGEN,URINE 0.2 E.U/dL (0.2-1.0)
[2022-03-28 16:53] LABS: UA COLLECTION TYPE CLN CATCH MIDSTREAM
== END 2022-03-28 16:46 | disposition home or self-care (01) ==
LOC: ER 13:50
DX: U07.1 COVID-19 (principal); E83.42 Hypomagnesemia; F41.9 Anxiety disorder, unspecified; F12.10 Cannabis abuse, uncomplicated; F17.210 Nicotine dependence, cigarettes, uncomplicated; Z91.018 Allergy to other foods; Z88.0 Allergy status to penicillin; Z79.2 Long term (current) use of antibiotics
CPT/HCPCS: 36415; 71045; 80053; 81003; 82550; 83735; 84145; 85025; 87635; 93005; 96361; 96365; 99285; C9803; J3475; J7120

== ENCOUNTER 2024-01-31 12:01 | Emergency (ER) | payer MEDICAID ==
[~2024-01-31] VITALS: Ht 185.4 cm; Wt 78.2 kg
[2024-01-31 12:16] LABS: BASOPHILS % (AUTO) 0.3 % (0-1); EOSINOPHILS # (AUTO) 0.3 X10'3 (0-0.9); EOSINOPHILS % (AUTO) 3.7 % (0-6); HEMATOCRIT 44.7 % (42.0-52.0); HEMOGLOBIN 14.9 g/dl (14.0-17.9); LYMPHOCYTES # (AUTO) 2.7 X10'3 (1.1-4.8); LYMPHOCYTES % (AUTO) 31.2 % (21-51); MEAN CORPUSCULAR HEMOGLOBIN 31.7 PG (27.0-31.0); MEAN CORPUSCULAR HGB CONC 33.4 g/dL (33.0-36.5); MEAN CORPUSCULAR VOLUME 94.7 FL (78-98); MEAN PLATELET VOLUME 6.6 FL (7.4-10.4); MONOCYTES # (AUTO) 0.6 X10'3 (0-0.9); MONOCYTES % (AUTO) 6.6 % (2-12); NEUTROPHILS # (AUTO) 5.1 X10'3 (1.8-7.7); NEUTROPHILS % (AUTO) 58.2 % (42-75); PLATELET COUNT 350 X10'3 (140-440); RED BLOOD COUNT 4.72 X10'6 (4.70-6.10); RED CELL DISTRIBUTION WIDTH 13.2 % (11.5-14.5); WHITE BLOOD COUNT 8.7 X10'3 (4.5-11.0)
[2024-01-31 12:38] LABS: ALANINE AMINOTRANSFERASE 33 U/L (12-78); ALBUMIN/GLOBULIN RATIO 1.1 (1.1-1.5); ALKALINE PHOSPHATASE 73 IU/L (46-116); ANION GAP 6 (8-16); ASPARTATE AMINO TRANSFERASE 16 U/L (10-37); BILIRUBIN,TOTAL 0.3 MG/DL (0.1-1.0); BLOOD UREA NITROGEN 8 MG/DL (7-18); BUN/CREATININE RATIO 8.6 (10.0-20.0); CALCIUM 8.9 MG/DL (8.5-10.1); CHLORIDE 103 MMOL/L (99-107); CREATININE 0.93 MG/DL (0.60-1.10); GLUCOSE 85 MG/DL (70-104); POTASSIUM 3.6 MMOL/L (3.5-5.1); PRO BRAIN NATRIURETIC PEPTIDE 107 PG/ML (0-125); SODIUM 141 MMOL/L (135-145); TOTAL CARBON DIOXIDE 32.4 MMOL/L (24-32); TOTAL PROTEIN 7.5 G/DL (6.4-8.2); eGFR > 90 ML/MIN
[2024-01-31 12:42] VITALS: TEMP 97.6
[2024-01-31 15:06] VITALS: BP 125/77; PULSE 63; RESP 16; O2SAT 97
[2024-01-31] MEDS: ketorolac tromethamine 15mg/ml inj. IM ONE (15:17)
== END 2024-01-31 15:17 | disposition home or self-care (01) ==
LOC: ER 12:02
DX: R07.89 Other chest pain (principal); F41.9 Anxiety disorder, unspecified; F17.210 Nicotine dependence, cigarettes, uncomplicated; F12.90 Cannabis use, unspecified, uncomplicated; F14.90 Cocaine use, unspecified, uncomplicated; Z91.018 Allergy to other foods; Z88.0 Allergy status to penicillin; Z79.2 Long term (current) use of antibiotics
CPT/HCPCS: 36415; 80053; 83880; 84484; 85025; 93005; 96372; 99284; J1885

== ENCOUNTER 2025-01-11 08:23 | Emergency (ER) | payer MEDICAID ==
[~2025-01-11] VITALS: Ht 182.9 cm; Wt 74.2 kg
[2025-01-11 08:28] VITALS: TEMP 99
--- NOTE | 2025-01-11 08:40 | ELECTROCARDIOGRAPH REPORT ---
[facility] Test Date: 2025-01-11 Test Time: 08:37:22 Pat Name: DENTON PICKETT Department: [facility]- Patient ID: [id number] Room: Gender: M Accounting Professional: : 1990 Requested By: ROSALBA ROSAS Order Number: [id number] Reading MD: Dr. Erich Mead Measurements Intervals [place] Rate: 58 P: 83 CT: 136 QRS: 91 QRSD: 103 T: 69 QT: 415 QTc: 408 Interpretive Statements Sinus bradycardia Borderline right axis deviation ST elev, probable normal early repol pattern Electronically Signed On 01-13-2025 11:02:[address] Erich Mead Please click the below link to view image of tracing.
--- NOTE | 2025-01-11 09:22 | RADIOLOGY REPORT ---
CHEST RADIOGRAPH Indication: CP Technique: Single frontal view of the chest was obtained COMPARISON: CHEST,SINGLE VIEW on DOS: 03/28/22, CHEST,SINGLE VIEW on DOS: 12/08/21, CHEST,SINGLE VIEW o n DOS: 12/07/21 FINDINGS: Lines and Tubes: None Lungs: Clear Pleura: No effusion. No pneumothorax. Cardiomediastinal contours: Unremarkable Bones: Unremarkable IMPRESSION: No acute disease.
[2025-01-11 09:26] LABS: BASOPHILS % (AUTO) 0.5 % (0-1); EOSINOPHILS # (AUTO) 0.4 X10'3 (0-0.9); EOSINOPHILS % (AUTO) 4.1 % (0-6); HEMOGLOBIN 14.5 g/dl (14.0-17.9); LYMPHOCYTES % (AUTO) 23.5 % (21-51); MEAN CORPUSCULAR HEMOGLOBIN 31.3 PG (27.0-31.0); MEAN CORPUSCULAR HGB CONC 33.8 g/dL (33.0-36.5); MEAN CORPUSCULAR VOLUME 92.6 FL (78-98); MEAN PLATELET VOLUME 6.3 FL (7.4-10.4); MONOCYTES # (AUTO) 0.5 X10'3 (0-0.9); MONOCYTES % (AUTO) 6.2 % (2-12); NEUTROPHILS # (AUTO) 5.7 X10'3 (1.8-7.7); NEUTROPHILS % (AUTO) 65.7 % (42-75); PLATELET COUNT 358 X10'3 (140-440); RED BLOOD COUNT 4.64 X10'6 (4.70-6.10); RED CELL DISTRIBUTION WIDTH 13.6 % (11.5-14.5); WHITE BLOOD COUNT 8.7 X10'3 (4.5-11.0)
[2025-01-11 09:44] LABS: ALANINE AMINOTRANSFERASE 26 U/L (12-78); ALBUMIN 3.9 G/DL (3.4-5.0); ALKALINE PHOSPHATASE 89 IU/L (46-116); ANION GAP 5 (8-16); ASPARTATE AMINO TRANSFERASE 21 U/L (10-37); BILIRUBIN,TOTAL 0.4 MG/DL (0.1-1.0); BLOOD UREA NITROGEN 6 MG/DL (7-18); BUN/CREATININE RATIO 6.6 (10.0-20.0); CHLORIDE 105 MMOL/L (99-107); CREATININE 0.91 MG/DL (0.60-1.10); GLUCOSE 82 MG/DL (70-104); SODIUM 140 MMOL/L (135-145); TOTAL CARBON DIOXIDE 30.2 MMOL/L (24-32); TOTAL PROTEIN 7.7 G/DL (6.4-8.2); eCRCL 121 ML/MIN; eGFR > 90 ML/MIN
[2025-01-11 09:49] LABS: PRO BRAIN NATRIURETIC PEPTIDE 38 PG/ML (0-125)
--- NOTE | 2025-01-11 11:13 | Physician Documentation ---
History of Present Illness ~ Chief Complaint: Chest Pain Stated Complaint: L SHOULDER/CHEST WALL PAIN X6 DAYS Time Seen by MD: 08:44 Primary Medical Doctor: [facility] Source: patient, RN/ HPI Patient is seen today with complaints of left sided chest pain or pain in his pectoralis. Patient states this pain just started this morning and patient was concerned because he has a history of congestive heart failure and rhabdomyolysis from likely drug use. Patient denies any significant aggravating or relieving factors. Patient denies any shortness of breath or diaphoresis or abdominal pain or nausea, vomiting, diarrhea. He has no other concern or complaint at this time. Tetanus within 5 Years?: Yes Allergies: Coded Allergies: banana (Verified Allergy, Severe, WHOLE BODY SWELLS, RASH, 01/31/24) Penicillins (Verified Allergy, Intermediate, RASH/HIVES, 01/31/24) Active Prescriptions See Medication Reconciliation Form. Medication Reconciliation Scheduled Azithromycin (Azithromycin), 1 TAB PO DAILY Past Medical History Past Medical History: Pneumonia, Eczema, Anxiety Past Surgical History: no surgical history Alcohol Use: Occasionally Drug Use: marijuana, cocaine Lives with: S/O Lives In: Home Occupation: employed Review of Systems Constitutional: Denies: chills, fever, weakness Eyes: Denies: pain, blurred vision ENT: Denies: ear pain, nose pain, throat pain, mouth pain Respiratory: Denies: cough, shortness of breath Cardiovascular: Denies: chest pain, palpitations Gastrointestinal: Denies: abdominal pain, nausea, vomiting Genitourinary: Denies: burning, dysuria Male Genitalia: Denies: penile discharge, testicular pain Neurological: Denies: headache, dizziness Musculoskeletal: Denies: pain, swelling Integumentary: Denies: rash, lesions Allergic/Immunologic: Denies: hives, itching Hematologic/Lymphatic: Denies: no symptoms reported Psychiatric: Denies: depression, anxiety Physical Exam Vital Signs: Temperature: 99.0, Source: Oral, Heart Rate: 57, Respiratory Rate: 16, BP: 127/96, Pulse Oximetry: 100, Weight: 74.200 Oxygen Flow Rate: 0 Progress Results/Orders Results/Orders Vital Signs 01/11/25 01/11/25 01/11/25 08:28 10:44 11:30 Temp 99.0 Pulse 57 57 Resp 16 12 B/P (MAP) 127/96 127/75 Pulse Ox 100 98 O2 Flow Rate 0 Laboratory Tests Test 01/11/25 09:13 White Blood Count 8.7 Red Blood Count 4.64 L Hemoglobin 14.5 Hematocrit 43.0 Mean Corpuscular Volume 92.6 Mean Corpuscular Hemoglobin 31.3 H Mean Corpuscular Hemoglobin Concent 33.8 Red Cell Distribution Width 13.6 Platelet Count 358 Mean Platelet Volume 6.3 L Neutrophils (%) (Auto) 65.7 Lymphocytes (%) (Auto) 23.5 Monocytes (%) (Auto) 6.2 Eosinophils (%) (Auto) 4.1 Basophils (%) (Auto) 0.5 Neutrophils # (Auto) 5.7 Lymphocytes # (Auto) 2.0 Monocytes # (Auto) 0.5 Eosinophils # (Auto) 0.4 Basophils # (Auto) 0.0 CBC Comment Sodium Level 140 Potassium Level 4.0 Chloride Level 105 Carbon Dioxide Level 30.2 Anion Gap 5 L Blood Urea Nitrogen 6 L Creatinine 0.91 Estimated GFR/1.73 m2 > 90 BUN/Creatinine Ratio 6.6 L Glucose Level 82 Calcium Level 9.0 Total Bilirubin 0.4 Aspartate Amino Transf (AST/SGOT) 21 Alanine Aminotransferase (ALT/SGPT) 26 Alkaline Phosphatase 89 Troponin I High Sensitivity < 4 L Troponin I High Sens Percent Delta Troponin I Hi Sens Absolute Change Pro-B-Type Natriuretic Peptide 38 Total Protein 7.7 Albumin 3.9 Globulin 3.8 Albumin/Globulin Ratio 1.0 L Chemistry Comments EKG/XRAY/CT/US/VASC/MRI EKG : Additional Comment EKG interpreted by myself today shows slightly bradycardic rate at 58 beats per minute, and normal sinus rhythm and no sign of ST segment elevation, Heart Score: Heart Score Response (Comments) Value History Slightly Suspicious 0 EKG Normal 0 Age <45 0 Risk Factors 1 or 2 risk factors 1 Troponin Normal limit 0 Total 1 Medical Decision Making Findings Patient is seen today with complaints of left sided chest pain or pain in his pectoralis. Patient states this pain just started this morning and patient was concerned because he has a history of congestive heart failure and rhabdomyolysis from likely drug use. Patient denies any significant aggravating or relieving factors. Patient denies any shortness of breath or diaphoresis or abdominal pain or nausea, vomiting, diarrhea. He has no other concern or complaint at this time. Patient did have EKG, labs, and chest x-ray that all returned unremarkable. Patient will continue healthy lifestyle with healthy diet and activity level as tolerated. Shared decision-making utilized today. Patient will return to ED with any worsening, concerning or changing symptoms. Departure Disposition: HOME / SELF CARE / HOMELESS Impression: Primary Impression: Chest wall pain Condition: Stable Discharge Instructions: Nonspecific Chest Pain, Adult Additional Instructions: Patient did have EKG, labs, and chest x-ray that all returned unremarkable. Patient will continue healthy lifestyle with healthy diet and activity level as tolerated. Shared decision-making utilized today. Patient will return to ED with any worsening, concerning or changing symptoms. Referrals: NO PRIMARY CARE PROVIDER (PCP) Signature Scribe Signature: No scribe Attestation: No scribe RHETT JEFFREY January 11, 2025 11:13
[2025-01-11 11:30] VITALS: BP 127/75; PULSE 57; RESP 12; O2SAT 98
== END 2025-01-11 11:31 | disposition home or self-care (01) ==
LOC: ER 08:23
DX: R07.89 Other chest pain (principal); I50.9 Heart failure, unspecified; F12.90 Cannabis use, unspecified, uncomplicated; F14.90 Cocaine use, unspecified, uncomplicated; F41.9 Anxiety disorder, unspecified; Z72.89 Other problems related to lifestyle; Z88.0 Allergy status to penicillin; Z91.018 Allergy to other foods
CPT/HCPCS: 36415; 71045; 80053; 83880; 84484; 85025; 93005; 99285

== ENCOUNTER 2025-07-02 10:09 | Emergency (ER) | payer MEDICAID ==
[~2025-07-02] VITALS: Ht 182.9 cm; Wt 72.8 kg
[2025-07-02 10:20] VITALS: TEMP 98.2
[2025-07-02] MEDS ORDERED: AZIT-103 PO (11:14)
[2025-07-02] MEDS ORDERED: BENZ-38 PO (11:14)
--- NOTE | 2025-07-02 11:15 | Physician Documentation ---
History of Present Illness ~ Chief Complaint: Cold, cough & congestion Stated Complaint: COLD SYMPTOMS Time Seen by MD: 11:00 Primary Medical Doctor: Harshal [facility] HPI 35-year-old male presents to the ED with 12 days of cold cough and congestion states he has discolored sputum intermittent fevers going over 101.4. States he feels weak body aches Medication Reconciliation Allergies: Coded Allergies: banana (Verified Allergy, Severe, WHOLE BODY SWELLS, RASH, 01/31/24) Penicillins (Verified Allergy, Intermediate, RASH/HIVES, 01/31/24) Scheduled Azithromycin (Azithromycin), 1 TAB PO DAILY Past Medical History Past Medical History: Pneumonia, Eczema, Anxiety Past Surgical History: no surgical history Alcohol Use: Occasionally Drug Use: marijuana, cocaine Lives with: S/O Lives In: Home Occupation: employed Review of Systems All Other Systems at this time: Reviewed and Negative Physical Exam Vital Signs: Temperature: 98.2, Source: Oral, Heart Rate: 58, Respiratory Rate: 16, BP: 133/76, Pulse Oximetry: 97, Weight: 72.800 Oxygen Flow Rate: 0 Physical Exam General: Alert, no apparent distress. Respiratory: Lungs clear, no respiratory distress. Chest: No accessory muscle use. Cardiovascular: Regular rate and rhythm, no murmurs. Gastrointestinal: Soft, nontender, nondistended. Bowels sounds present. Neurologic: Oriented x4. Psychiatric: Normal mood and affect. Skin: Normal color, warm and dry. No edema, no ecchymosis. Progress Results/Orders Results/Orders Vital Signs 07/02/25 10:20 Temp 98.2 Pulse 58 Resp 16 B/P (MAP) 133/76 Pulse Ox 97 O2 Flow Rate 0 Medical Decision Making Additional information obtaine: old records Findings Sudden length of symptoms I am going to offer the patient oral antibiotics Tessalon [place] and advised to take ibuprofen and increase fluid intake Differential Dx:Considerations: Include: Allergic rhinitis, Influenza, Otitis media, Peritonsillar abscess, Pharyngitis-Diphtheria, Pharyngitis-Streptoccal, Pharyngitis-Viral, Pneumonia, Pnuemonitis, Sinusitis, URI, Other Departure Disposition: 01 HOME / SELF CARE / HOMELESS Impression: Primary Impression: Acute respiratory infection Condition: Stable Discharge Instructions: Upper Respiratory Infection, Adult Referrals: NO PRIMARY CARE PROVIDER (PCP) Prescriptions Benzonatate* (Benzonatate*) 100 Mg Capsule 1 CAP PO Q8H for cough for 10 Days, #30 CAP Prov: USHA WATERS STRAP MAKER 07/02/25 Azithromycin (Azithromycin) 250 Mg Tablet 1 TAB PO UD for 5 Days, #6 TAB 2 the first day followed by 1 for days 2-5 Prov: USHA WATERS STRAP MAKER 07/02/25 Education Educated: Patient Educated regarding: diagnosis Signature Scribe Signature: t Attestation: Scribed for Usha Waters Mixing Machine Tender by Usha Waters - HARJINDER . 07/02/25 11:14 USHA WATERS NP Jul 02, 2025 11:15
[2025-07-02 11:50] VITALS: BP 128/74; PULSE 51; RESP 18; O2SAT 99
== END 2025-07-02 11:51 | disposition home or self-care (01) ==
LOC: ER 10:10
DX: J22 Unspecified acute lower respiratory infection (principal); F12.90 Cannabis use, unspecified, uncomplicated; F14.90 Cocaine use, unspecified, uncomplicated; Z88.0 Allergy status to penicillin; Z91.018 Allergy to other foods
CPT/HCPCS: 99283